=== PATIENT | male | born 1975 | race African-American/Black ===

== ENCOUNTER 2016-07-05 21:24 | Emergency (ER) | payer SELFPAY ==
[~2016-07-05] VITALS: Ht 172.7 cm; Wt 118.0 kg
[2016-07-05 21:26] VITALS: BP 135/82; PULSE 95; RESP 18; TEMP 98; O2SAT 96
== END 2016-07-05 23:25 | disposition left against medical advice (07) ==
LOC: NED 21:24
DX: R68.89 Other general symptoms and signs (principal)
CPT/HCPCS: 99281